=== PATIENT | male | born 1965 | race Caucasian/White ===

== ENCOUNTER → 2021-03-09 | Outpatient (CLI) | payer OTHER ==
--- NOTE | 2021-03-09 11:23 | RAD ---
XR LUMBAR SPINE 2-3V History: Low back pain Comparison: None. Technique: 3 views of the lumbar spine. Findings: There are 5 non-rib bearing lumbar vertebral segments. There is no evidence of fracture. Alignment is normal. No destructive osseous lesions are seen. Facet hypertrophy L5-S1. Mild disc space narrowing L1-L2, L3-L4 and L5-S1. Sacroiliac joints are unremarkable. Soft tissues are unremarkable. IMPRESSION: 1. Mild lumbar spondylosis as above. Electronically signed by: Toney Senior MD (03/09/2021 11:20 AM) [facility]
== END ==
LOC: RAD 09:04
DX: Z02.71 Encounter for disability determination (principal); M47.817 Spondylosis without myelopathy or radiculopathy, lumbosacral region; M48.07 Spinal stenosis, lumbosacral region
CPT/HCPCS: 72100